=== PATIENT | female | born 1965 | race Hispanic/Latino ===

== ENCOUNTER 2019-12-31 15:29 | Outpatient (CLI) | payer OTHER ==
--- NOTE | 2019-12-31 15:59 | RAD ---
LEFT KNEE 2 VIEWS: HISTORY: Knee pain, disability exam. FINDINGS: Signs of fracture or joint effusion. I do not appreciate any significant spur formation. IMPRESSION: Unremarkable left knee. POS: AH
--- NOTE | 2019-12-31 16:17 | RAD ---
LEFT SHOULDER TWO VIEWS: Indications: Disability evaluation FINDINGS: Left shoulder joint is unremarkable. AC joint normally aligned. No acute finding. IMPRESSION: Unremarkable left shoulder. POS: AGW
--- NOTE | 2019-12-31 16:18 | RAD ---
LEFT HAND TWO VIEWS: History: Disability evaluation FINDINGS: Moderate degenerative change at the first carpal metacarpal joint with hypertrophic changes and joint narrowing. 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 The other MCP joints are unremarkable. IP joints are unremarkable. No acute abnormality. IMPRESSION: Degenerative changes are prominent at the first carpal metacarpal joint. POS: AGW
== END 2019-12-31 15:30 | disposition home or self-care (01) ==
LOC: BICRAD 15:29
PROVIDERS: ATTEND Internal Medicine
DX: Z02.71 Encounter for disability determination (principal); M18.12 Unilateral primary osteoarthritis of first carpometacarpal joint, left hand